=== PATIENT | male | born 1955 | race Hispanic/Latino ===

== ENCOUNTER 2025-04-30 15:11 | Emergency (ER) | payer MEDICARE ==
[~2025-04-30] VITALS: Ht 172.7 cm; Wt 90.7 kg
[2025-04-30 15:55] VITALS: TEMP 97.8
[2025-04-30] MEDS: DEXAMETHASONE SOD PHOS 10 MG/1 ML VIAL IV ONE (17:15)
[2025-04-30] MEDS: FAMOTIDINE 20 MG/2 ML VIAL IV STA (17:15)
[2025-04-30] MEDS: DIPHENHYDRAMINE HCL INJ 50 MG/ML VIAL IV ONE (17:15)
[2025-04-30] MEDS: SODIUM CHLORIDE 0.9% 500ML 500 ML IV ONE (17:16)
[2025-04-30 17:30] LABS: BASOPHILS % 0.2 % (0.0-1.0); EOSINOPHILS % 4.3 % (0.0-6.0); LYMPHOCYTES % 30.6 % (18.0-39.1); MONOCYTES % 6.1 % (4.4-11.3); NEUTROPHILS % 58.4 % (38.7-80.0); RED CELL DISTRIBUTION WIDTH 12.6 % (11.7-14.4)
[2025-04-30 18:06] LABS: EST GLOMERULAR FILTRATION RATE 45.0 ML/MIN (>=60)
[2025-04-30] MEDS ORDERED: MEDROL4 M2 PO (18:34)
[2025-04-30] MEDS ORDERED: DOXYCYCLINE HY100 MG PO (18:34)
[2025-04-30 18:47] VITALS: PULSE 63; RESP 18
[2025-04-30 18:49] VITALS: BP 166/76; PULSE 63; RESP 18; O2SAT 100
== END 2025-04-30 18:40 | disposition home or self-care (01) ==
LOC: ER 16:00
DX: T63.441A Toxic effect of venom of bees, accidental (unintentional), initial encounter (principal); I12.9 Hypertensive chronic kidney disease with stage 1 through stage 4 chronic kidney disease, or unspecified chronic kidney disease; E11.22 Type 2 diabetes mellitus with diabetic chronic kidney disease; E11.65 Type 2 diabetes mellitus with hyperglycemia; N18.9 Chronic kidney disease, unspecified; Z95.1 Presence of aortocoronary bypass graft
CPT/HCPCS: 36415; 80053; 85025; 99283; J1100; J1200; J1308; J7040